=== PATIENT | female | born 1950 | race Caucasian/White ===

== ENCOUNTER 2016-09-02 10:23 | Emergency (ER) | payer OTHER ==
[~2016-09-02] VITALS: Ht 170.2 cm; Wt 75.8 kg
[2016-09-02 10:31] VITALS: BP 116/69; PULSE 68; RESP 15; TEMP 98.1; O2SAT 95
[2016-09-02] MEDS ORDERED: SODIUM CHLOR 0.9% 1000 ML INJ 1,000 ML IV SCH (11:11)
[2016-09-02] MEDS ORDERED: ONDANSETRON HCL 4 MG/2 ML VIAL IVP ONE (11:15)
[2016-09-02] MEDS ORDERED: SODIUM CHLORIDE 0.9% FLUSH 5 ML FLUSH IVF PRN (11:15)
[2016-09-02 11:20] VITALS: O2SAT 95
[2016-09-02 11:34] LABS: AUTOMATED NEUTROPHIL # 5.8 TH/MM3 (1.8-7.7); BASOPHIL # 0.1 TH/MM3 (0-0.2); BASOPHIL % 1.2 % (0.0-2.0); EOSINOPHIL # 0.1 TH/MM3 (0-0.4); EOSINOPHIL % 1.7 % (0.0-4.0); HEMATOCRIT 37.7 % (35.0-46.0); HEMO FLAGS DIFF FINAL; LYMPH % 15.4 % (9.0-44.0); LYMPHOCYTE # 1.2 TH/MM3 (1.0-4.8); MEAN CELL VOLUME 87.2 FL (80.0-100.0); MEAN CORPUSCULAR HEMOGLOBIN 29.2 PG (27.0-34.0); MEAN CORPUSCULAR HGB CONC 33.5 % (32.0-36.0); MONO % 5.1 % (0.0-8.0); NEUT % 76.6 % (16.0-70.0); PLATELET COUNT 206 TH/MM3 (150-450); RED BLOOD COUNT 4.32 MIL/MM3 (4.00-5.30); RED CELL DISTRIBUTION WIDTH 12.6 % (11.6-17.2); WHITE BLOOD COUNT 7.6 TH/MM3 (4.0-11.0)
[2016-09-02 11:44] LABS: CHLORIDE 107 MEQ/L (98-107); POTASSIUM 3.8 MEQ/L (3.5-5.1); SODIUM (NA) 143 MEQ/L (136-145)
[2016-09-02 11:48] LABS: ANION GAP 6 MEQ/L (5-15); BICARBONATE 29.9 MEQ/L (21.0-32.0); BLOOD UREA NITROGEN 15 MG/DL (7-18)
--- NOTE | 2016-09-02 11:48 | PD ---
HPI Chief Complaint: GI Complaint Time Seen by Provider: 11:11 Travel History International Travel<30 days: No Contact w/Intl Traveler<30days: No Traveled to known affect area: No History of Present Illness HPI 65-year-old female with no significant past medical issues, presents to the ER today because she states that she woke up this morning and started vomiting 5 times, had an episode of diarrhea with spots of red blood in it. She denies any abdominal pains, fevers, or any other symptoms. She does not know any sick contacts. She denies any black stools although she states it was dark. Modifying Factors: None Associated Signs & Symptoms: Vomiting, diarrhea, blood in the stool Risk Factors: None PFSH Past Medical History Thyroid Disease: Yes Influenza Vaccination: No ?: Not Tubal Ligation: Yes Social History Alcohol Use: No Tobacco Use: Yes (10 CIGS/DAY) Substance Use: No Allergies-Medications (Allergen,Severity, Reaction): Coded Allergies: No Known Allergies (Unverified , 09/02/16) Reported Meds & Prescriptions Reported Meds & Active Scripts Active Reported Actonel (Risedronate) 35 Mg Tab 150 Mg PO MONTHLY Celexa (Citalopram Hydrobromide) 20 Mg Tab 20 Mg PO DAILY Levothyroxine (Levothyroxine Sodium) 88 Mcg Tab 88 Mcg PO DAILY Review of Systems Except as stated in HPI: all other systems reviewed are Neg Physical Exam Narrative GENERAL: Pleasant elderly white female patient who is well-developed, not in acute distress, awake, alert, oriented 3. SKIN: Warm and dry. HEAD: Atraumatic. Normocephalic. EYES: Pupils equal and round. No scleral icterus. No injection or drainage. ENT: No nasal bleeding or discharge. Mucous membranes pink and moist. NECK: Trachea midline. No JVD. CARDIOVASCULAR: Regular rate and rhythm. No murmur appreciated. RESPIRATORY: No accessory muscle use. Clear to auscultation. Breath sounds equal bilaterally. GASTROINTESTINAL: Abdomen soft, non-tender, nondistended. Hepatic and splenic margins not palpable. RECTAL EXAM: No masses or tenderness, stool is brown with flecks of blood in it , Hemoccult positive. MUSCULOSKELETAL: No obvious deformities. No clubbing. No cyanosis. No edema. NEUROLOGICAL: Awake and alert. No obvious cranial nerve deficits. Motor grossly within normal limits. Normal speech. PSYCHIATRIC: Appropriate mood and affect; insight and judgment normal. Data Data Last Documented VS Vital Signs Date Time Temp Pulse Resp B/P Pulse Ox O2 Delivery O2 Flow Rate FiO2 09/02/16 12:45 54 14 141/64 96 Room Air 09/02/16 10:31 98.1 Orders Complete Blood Count With Diff (09/02/16 11:11) Comprehensive Metabolic Panel (09/02/16 11:11) Lipase (09/02/16 11:11) Urinalysis - C+S If Indicated (09/02/16 11:11) Iv Access Insert/Monitor (09/02/16 11:11) Ecg Monitoring (09/02/16 11:11) Oximetry (09/02/16 11:11) Ondansetron Inj (Zofran Inj) (09/02/16 11:15) Sodium Chlor 0.9% 1000 Ml Inj (Ns 1000 M (09/02/16 11:11) Sodium Chloride 0.9% Flush (Ns Flush) (09/02/16 11:15) Labs Laboratory Tests Test 09/02/16 09/02/16 11:20 12:45 White Blood Count 7.6 TH/MM3 Red Blood Count 4.32 MIL/MM3 Hemoglobin 12.6 GM/DL Hematocrit 37.7 % Mean Corpuscular Volume 87.2 FL Mean Corpuscular Hemoglobin 29.2 PG Mean Corpuscular Hemoglobin 33.5 % Concent Red Cell Distribution Width 12.6 % Platelet Count 206 TH/MM3 Mean Platelet Volume 9.1 FL Neutrophils (%) (Auto) 76.6 % Lymphocytes (%) (Auto) 15.4 % Monocytes (%) (Auto) 5.1 % Eosinophils (%) (Auto) 1.7 % Basophils (%) (Auto) 1.2 % Neutrophils # (Auto) 5.8 TH/MM3 Lymphocytes # (Auto) 1.2 TH/MM3 Monocytes # (Auto) 0.4 TH/MM3 Eosinophils # (Auto) 0.1 TH/MM3 Basophils # (Auto) 0.1 TH/MM3 CBC Comment DIFF FINAL Differential Comment Sodium Level 143 MEQ/L Potassium Level 3.8 MEQ/L Chloride Level 107 MEQ/L Carbon Dioxide Level 29.9 MEQ/L Anion Gap 6 MEQ/L Blood Urea Nitrogen 15 MG/DL Creatinine 0.91 MG/DL Estimat Glomerular Filtration 62 ML/MIN Rate Random Glucose 105 MG/DL Calcium Level 8.5 MG/DL Total Bilirubin 0.4 MG/DL Aspartate Amino Transf 17 U/L (AST/SGOT) Alanine Aminotransferase 20 U/L (ALT/SGPT) Alkaline Phosphatase 55 U/L Total Protein 6.9 GM/DL Albumin 3.8 GM/DL Lipase 159 U/L Urine pH 6.0 Urine Protein NEG mg/dL Urine Glucose (UA) NEG mg/dL Urine Ketones NEG mg/dL Urine Occult Blood TRACE Urine Nitrite NEG Urine Bilirubin NEG Urine Leukocyte Esterase NEG MDM Medical Decision Making Medical Screen Exam Complete: Yes Emergency Medical Condition: Yes Medical Record Reviewed: Yes Interpretation(s) Laboratory Tests Test 09/02/16 09/02/16 11:20 12:45 Neutrophils (%) (Auto) 76.6 % (16.0-70.0) Estimat Glomerular Filtration 62 ML/MIN (>89) Rate Urine Occult Blood TRACE (NEG) Differential Diagnosis Blood in the stools, vomitinggastroenteritis versus dehydration versus pancreatitis versus GI bleed Narrative Course Abdomen is benign and I do not suspect an acute intra-abdominal process. Her Hemoccult is positive by see red blood flecks in the stool. I do not see any signs that this is of melena. I suspect that this is more likely to be a gastroenteritis with possible colitis causing some of the bleeding. However, GI bleeding cannot be completely ruled out. Vital signs are stable in the ER. Her lab work is unremarkable, stable H&H. At this point, I have talked to the patient further and have talked about further outpatient close follow-up with primary care physician versus obtaining further radiological studies a chest CAT scan here in the ER. Patient states she is feeling comfortable now, is not nauseous anymore, and is comfortable with outpatient follow-up with primary care physician. Return for any worsening in pain, vomiting, fevers, bleeding, and as needed. The plan has been discussed with the patient and she states understanding. [facility] Point of Care Internal Pos. & Neg. Controls: Passed Fecal Specimen Occult Blood: Positive Diagnosis Primary Impression: VOMITING, UNSPECIFIED Additional Impression: Blood in stool Med/Other Pt SpecificInfo: Prescription(s) given Scripts Ondansetron Odt (Zofran Odt)4 Mg Tab4 Mg SL Q6HR PRN (Nausea/Vomiting) #7 TAB Ref 0 Prov:Lydia Monsivais MD 09/02/16 Disposition: 01 DISCHARGE HOME Condition: Stable Lydia Monsivais MD Sep 02, 2016 11:48
[2016-09-02 11:51] LABS: ALT (GPT) 20 U/L (10-53); AST (GOT) 17 U/L (15-37); GLOMERULAR FILTRATION RATE 62 ML/MIN (>89)
[2016-09-02 11:53] LABS: TOTAL BILIRUBIN ADULT 0.4 MG/DL (0.2-1.0)
[2016-09-02 11:54] LABS: ALKALINE PHOSPHATASE 55 U/L (45-117)
[2016-09-02] MEDS ORDERED: CELE20TA PO (12:35)
[2016-09-02] MEDS ORDERED: LEVO88TA2 PO (12:35)
[2016-09-02] MEDS ORDERED: ACTO35TA PO (12:35)
[2016-09-02 12:45] VITALS: BP 141/64; PULSE 54; RESP 14; O2SAT 96
[2016-09-02 12:54] LABS: BLOOD, URINE TRACE (NEG); GLUCOSE,URINE NEG (NEG); KETONE, URINE NEG (NEG); NITRITE,URINE NEG (NEG)
[2016-09-02] MEDS ORDERED: ZOFR4TAB3 SL (13:16)
[2016-09-02 13:17] LABS: COMMENT (UR) CULT NOT INDICATED; CULTURE IF INDICATED CULT NOT INDICATED; METHOD OF COLLECTION CLEAN CATCH; SQUAMOUS EPITHELIAL CELL URINE 0-5 /hpf (0-5); URINE COLOR YELLOW (YELLW/STRAW)
== END 2016-09-02 13:23 | disposition home or self-care (01) ==
LOC: PHED 10:23
DX: R11.10 Vomiting, unspecified (principal)
CPT/HCPCS: 80053; 81001; 83690; 85025; 96361; 96374; 99284; J2405; J7030